=== PATIENT | female | born 1970 | race Caucasian/White ===

== ENCOUNTER 2023-10-01 21:10 | Emergency (ER) | payer MEDICAID ==
[~2023-10-01] VITALS: Ht 152.4 cm; Wt 80.3 kg
[2023-10-01 21:36] VITALS: O2SAT 97
== END 2023-10-01 21:56 | disposition left against medical advice (07) ==
LOC: ER 21:13
DX: R10.9 Unspecified abdominal pain (principal); Z53.21 Procedure and treatment not carried out due to patient leaving prior to being seen by health care provider
CPT/HCPCS: A4606; A4663